=== PATIENT | female | born 1950 | race Caucasian/White ===

== ENCOUNTER → 2020-02-29 | Outpatient (CLI) | payer OTHER ==
[~2020-02-29] MED LIST: DIPHENHIST50 MG PO; LEVOTHYROXINE125 MCG PO; METAMUCIL1 EAC1 PO; MULTI VITAMIN1 EACH PO; PRILOSEC OTC20 MG PO; PROAIR HFA8.5 GM INH; TYLENOL ARTHRI650 MG PO; VITAMIN D325 MC2 PO; ZYRTEC10 M5 PO
== END ==
LOC: LAB 13:40
PROVIDERS: ATTEND Orthopaedic Surgery
DX: Z01.812 Encounter for preprocedural laboratory examination (principal); Z20.828 Contact with and (suspected) exposure to other viral communicable diseases

== ENCOUNTER → 2020-04-11 | Outpatient (CLI) | payer OTHER ==
[~2020-04-11] MED LIST changes: +SYMBICORT160 MCG/4. INH
== END ==
LOC: LAB 11:34
PROVIDERS: ATTEND Orthopaedic Surgery
DX: Z01.812 Encounter for preprocedural laboratory examination (principal); Z20.828 Contact with and (suspected) exposure to other viral communicable diseases

== ENCOUNTER 2020-04-16 06:10 | Day surgery (SDC) | payer OTHER ==
[2020-04-11 11:12] LABS: HEMATOCRIT 37.9 % (37.0-47.0); HEMOGLOBIN 12.4 gm/dL (12.0-15.0); MCH 27.4 pg (26.0-34.0); MCHC 32.7 g/dL (28.0-37.0); MCV 83.7 fL (80.0-100.0); RBC 4.53 mil/uL (4.20-5.00); RDW 14.9 % (10.5-14.5); WBC 8.2 thou/uL (4.0-11.0)
[2020-04-11 11:18] LABS: CALCIUM 9.4 mg/dL (8.5-10.1); CREATININE 0.9 mg/dL (0.6-1.0); POTASSIUM 4.2 mmol/L (3.5-5.1)
[2020-04-11 11:39] LABS: URINE BILIRUBIN NEGATIVE (Negative); URINE BLOOD NEGATIVE (Negative); URINE CLARITY CLEAR; URINE COLOR YELLOW; URINE GLUCOSE-RANDOM* NEGATIVE (Negative); URINE KETONES NEGATIVE (Negative); URINE LEUKOCYTES-REFLEX NEGATIVE (Negative); URINE NITRITE-REFLEX NEGATIVE (Negative); URINE PROTEIN (DIPSTICK) NEGATIVE (Negative); URINE SPECIFIC GRAVITY <= 1.005 (1.005-1.035); URINE UROBILINOGEN 0.2 E.U./dl (0.2-1.0)
[2020-04-16] VITALS (10 sets, daily range): BP systolic 103–179; BP diastolic 60–102
[~2020-04-16] VITALS: Ht 157.5 cm; Wt 88.0 kg
--- NOTE | 2020-04-16 22:14 | NUR ---
ASSESSED PT AT START OF SHIFT 1900. PT A&OX4. IV INTACT WITH FLUIDS INFUSING. PT UP WITH SBA TO THE BATHROOM WITH A WALKER AND GAIT BELT. AMBULATING WELL. EVENING MEDS GIVEN AND PT LUCIE IT WELL. VEDA DRESSING, POLAR PACK AND SCD'S IN PLACE. PT ON R/A. DENIES N/V. WILL CONT WITH POC TILL EOS.
[2020-04-17 05:28] VITALS: BP 144/74
[2020-04-17 06:09] LABS: HEMATOCRIT 31.3 % (37.0-47.0); MCH 27.3 pg (26.0-34.0); MCHC 32.1 g/dL (28.0-37.0); MCV 85.1 fL (80.0-100.0); RBC 3.68 mil/uL (4.20-5.00); RDW 14.6 % (10.5-14.5); WBC 14.4 thou/uL (4.0-11.0)
[2020-04-17 07:56] VITALS: BP 123/67
--- NOTE | 2020-04-17 09:37 | NUR ---
ASSESSMENT: CM REVIEWED CHART. PT IS A RIGHT TOTAL KNEE REPLACEMENT. PT REPORTS THAT SHE LIVES AT HOME WITH HER . PT HAS ABOUT 3 STEPS TO ENTER THE HOME WITH A HANDRAIL. PT REPORTS NORMALLY BEING INDEPENDENT WITH ADLS AND AMBULATION BUT IS NEEDING A WALKER FOR HOME. PT REPORTS NO PREFERENCE OF [employer]. CM NOTIFIED PROVIDER [employer] WHO IS VERIFYING AND WILL DELIVER WALKER IF ABLE. PT REPORTS HAVING OUTPATIENT THERAPY ARRANGED FOR WEDS/THURS. PT REPORTS NO FURTHER NEEDS FROM CM AT THIS TIME. PT WILL DISCHARGE HOME ONCE SHE HAS WALKER.
[2020-04-17 09:39] VITALS: BP 123/67
--- NOTE | 2020-04-17 10:10 | NUR ---
Assumed care of pt at 0700. Pt a&ox4. Pain controlled with prn pain meds. Dressing c/d/i. Cleared by physical therapy to go home. Awaiting walker. Will discharge to home once walker is delivered.
[2020-04-17 10:42] VITALS: BP 123/67
--- NOTE | 2020-04-19 21:07 | O ---
[facility] [place] [address] OPERATIVE REPORT Name: SIXTO BINGHAM Room #: DEP [facility] Patrizia.#: [id number] Admission: 04/16/20 Attend Phys: Nj Davis MD Discharge: 04/17/20 Date of : 50 Report #: [id number] THIS REPORT FOR: cc: Yissel Durham Kathryn DO Abraham, Scott M. MD ~ DATE OF SERVICE: 04/16/2020 PREOPERATIVE DIAGNOSIS: Right knee osteoarthritis. POSTOPERATIVE DIAGNOSIS: Right knee osteoarthritis. PROCEDURE: Right total knee arthroplasty using Navio robotic manufacturing assistant. SURGEON: Nj Davis MD. RADIOLOGY SPECIALIST: Mary Fung PA-C. INDICATIONS FOR RADIOLOGY SPECIALIST: Throughout the case, extensive retraction and manipulation of the knee was required. This was afforded to me by my manufacturing assistant. ANESTHESIA: LMA with an adductor canal block. IMPLANTS: [employer]hew size 4 Journey II BCS cobalt chrome femur, size 3 tibia, size 10 constrained polyethylene and a size 29 patella. TOURNIQUET TIME: 51 minutes. ESTIMATED BLOOD LOSS: 25 mL. COMPLICATIONS: None. SPECIMENS: None. CONDITION UPON LEAVING THE OPERATING ROOM: Stable. INDICATIONS FOR PROCEDURE: The patient is a 70-year-old female with severe right knee osteoarthritis. She had failed conservative measures for this and after discussion with her, she elected for right total knee arthroplasty. DESCRIPTION OF PROCEDURE: Risks, benefits, alternatives, complications were discussed in detail with the patient including but not limited to risk of anesthesia, risk of damage to nerves, arteries, blood vessels, risk for infection, bleeding, risk for continued knee pain, need for reoperation. [facility] [address] [place] [address] OPERATIVE REPORT Name: SIXTO BINGHAM Room #: DEP [facility] M.Aliya.#: [id number] Admission: 04/16/20 Attend Phys: Nj Davis MD Discharge: 04/17/20 Date of : 50 Report #: [id number] Informed consent was obtained from the patient. Right knee was appropriately marked in the preoperative holding area. IV Ancef was given for preoperative antibiotics. She was brought to the operating room and placed in supine position on operating room table. LMA anesthesia was induced without complication. Tourniquet was placed on the right thigh. Right lower extremity was prepped and draped in normal sterile fashion. Timeout was performed properly identifying the patient and procedure as well as the instrumentation and implants. All in the operating room were in agreement. Right lower extremity was exsanguinated, tourniquet was inflated. Tourniquet time was 51 minutes. Standard midline approach to the knee was made with 10 blade through the skin. Dissection was taken down sharply to the fascia and deep flaps were developed medially and laterally. Fresh 10 blade was used to make a medial parapatellar arthrotomy and the knee was inspected. There was severe lateral compartment osteoarthritis with moderate medial and patellofemoral involvement. ACL and PCL were removed sharply. Reference pins were placed in the femur and the tibia. The knee was then digitally mapped using [employer] robotic system. Intraoperative plan was made and we sized the size 4 femur, the size 3 tibia and a 10 spacer. After acceptance of the intraoperative plan, the distal femoral cut was made with a Navio bur. Distal femoral cutting block was pinned in place and chamfer cuts were made. Attention was turned to the tibia. Remainder of the menisci removed with Bovie cautery. Tibial resection guide was pinned in place using the Navio for placement and tibial resection was made. Flexion and extension gaps were then checked and found to have good balance laterally in flexion and extension with slight laxity medially. This was not surprising given that this was a valgus deformity knee and it was felt we could make up for this slight difference with a constrained liner. The tibia was sized, found to be a size 3. Size 3 tibial trial was placed, pinned and punched. A size 4 femoral trial was placed and the box cut was made. This was then trialed with a size 10 polyethylene and size 10 polyethylene demonstrated 1-1.5 mm of laxity laterally throughout range of motion of the knee. There are up to 3 mm medially in extension; however, in flexion, it was well balanced medially. It was felt we would use a constrained implant to make up for this laxity in extension medially. A 9 mm of bone was resected from the posterior surface of the patella and a size 29 patellar trial button was placed. Knee was taken through range of motion, found to be stable, found to have good patellar tracking. Trial components were removed. Bony ends were thoroughly irrigated with normal saline. A final size 3 tibia, size 4 Journey II BCS cobalt chrome femur and a size 29 patella were cemented in place using standard cementation techniques. While the cement cured, a periarticular injection consisting of morphine, ropivacaine, epinephrine, Toradol was placed around the knee joint capsule. After the cement cured, the tourniquet was deflated. Hemostasis was obtained with Bovie cautery. Final size 10 constrained polyethylene was placed. A gram of vancomycin was placed in the joint, fascia with Vicryl, skin was closed with 2-0 Vicryl, 3-0 Monocryl. Dermabond and a VEDA dressing was applied. The [address] [place] [address] OPERATIVE REPORT Name: SIXTO BINGHAM Room #: DEP [facility] M.R.#: [id number] Admission: 04/16/20 Attend Phys: Nj Davis MD Discharge: 04/17/20 Date of : 50 Report #: [id number] patient tolerated this procedure well and went to recovery room under care of anesthesia postoperatively. <ELECTRONICALLY SIGNED> By: Nj Davis MD 04/19/20 [id number] Nj Davis MD /nt
== END 2020-04-17 11:12 | disposition home or self-care (01) ==
LOC: OR 06:10 → TBA 06:11 → OR 10:29 → 4S 11:10 → OR 11:48
PROVIDERS: ATTEND Orthopaedic Surgery
DX: M17.11 Unilateral primary osteoarthritis, right knee (principal); M25.561 Pain in right knee; E03.9 Hypothyroidism, unspecified; J45.909 Unspecified asthma, uncomplicated; K21.9 Gastro-esophageal reflux disease without esophagitis; Z98.890 Other specified postprocedural states; Z79.899 Other long term (current) drug therapy; Z90.710 Acquired absence of both cervix and uterus; Z88.8 Allergy status to other drugs, medicaments and biological substances
CPT/HCPCS: 50101; 50415; 50954; 51130; 51225; 51320; 53000; 54118; 56527; 56528; 57095; 57103; 57110; 57127; 57180; 58239; 62110; 62900; 64042